=== PATIENT | male | born 1945 | race Caucasian/White ===

== ENCOUNTER 2024-03-14 12:12 | Emergency (ER) | payer MEDICARE ==
[~2024-03-14] VITALS: Ht 172.7 cm; Wt 65.0 kg
[~2024-03-14 12:12] MED LIST: ASPIRINCHW 81MG PO; ATORVASTATIN CA20 MG PO; CARVEDILOL6.25 MG PO; ENALAPRIL10 MG PO; LEFLUNOMIDE20 MG PO
[2024-03-14] MEDS ORDERED: VENTOLIN HFA108 MCG IN (14:06)
[2024-03-14] MEDS ORDERED: BENZONATATE200 MG PO (14:06)
[2024-03-14 14:08] VITALS: BP 132/81
== END 2024-03-14 14:14 | disposition home or self-care (01) ==
LOC: ED 12:12
DX: J10.1 Influenza due to other identified influenza virus with other respiratory manifestations (principal); I25.10 Atherosclerotic heart disease of native coronary artery without angina pectoris; I25.2 Old myocardial infarction; Z20.822 Contact with and (suspected) exposure to COVID-19